=== PATIENT | male | born 1970 | race Caucasian/White ===

== ENCOUNTER 2019-03-17 20:00 | Emergency (ER) | payer BC ==
[~2019-03-17] VITALS: Ht 160 cm; Wt 113.6 kg
[~2019-03-17 20:00] MED LIST: BACTRIM DS 8001 TAB PO; CEPHALEXIN250 M1 PO; CIPRO 500MG TA500 MG PO; CIPRO500 MG PO; FLOMAX 0.40.4 MG/CAP PO; HCTZ 25MG TAB25 MG PO; HTN MEDS; LORTAB 5/500 501 TAB PO; NO HOME MEDICATIONS; NORCO 325 MG-51 TAB PO; PHENERGAN 25 TA25 MG PO; PYRIDIUM200 M1 PO
[2019-03-17] MEDS ORDERED: CLEOCIN HC150 MG/CAP PO (21:34)
[2019-03-17 21:59] VITALS: BP 142/86; PULSE 86; TEMP 98.4
== END 2019-03-17 21:57 | disposition home or self-care (01) ==
LOC: COL.ER 20:00
DX: S61.212A Laceration without foreign body of right middle finger without damage to nail, initial encounter (principal); W26.8XXA Contact with other sharp object(s), not elsewhere classified, initial encounter; Y92.009 Unspecified place in unspecified non-institutional (private) residence as the place of occurrence of the external cause